=== PATIENT | female | born 2000 | race Caucasian/White ===

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

== ENCOUNTER 2023-08-11 07:56 | Emergency (ER) | payer OTHER ==
[~2023-08-11] VITALS: Ht 160 cm; Wt 54.4 kg
[~2023-08-11 07:56] MED LIST changes: +ABILIFY5 MG; +XYZAL5 MG
[2023-08-11] MEDS ORDERED: LAMOTRIGINE200 MG PO (08:11)
[2023-08-11] MEDS ORDERED: ABILIFY30 MG PO (08:12)
[2023-08-11 09:06] LABS: HEMATOCRIT 37.6 % (36.0-45.00); HEMOGLOBIN 12.2 g/dL (12.0-15.00); MEAN CELL VOLUME 86.5 fL (80.00-100.00); MEAN CORPUSCULAR HEMOGLOBIN 28.2 pg (27.00-32.0); MEAN CORPUSCULAR HGB CONC 32.6 g/dl (32.0-36.0); PLATELET COUNT 320 K/uL (150-450); RED BLOOD COUNT 4.35 M/uL (4.00-6.00); RED CELL DISTRIBUTION WIDTH 12.1 % (11.5-14.5)
[2023-08-11 09:52] LABS: BILIRUBIN TOTAL 0.33 mg/dL (0.3-1.2); CALCIUM 9.6 mg/dL (8.5-10.1); CREATININE SERUM 0.81 mg/dL (0.55-1.02); GFR 90.14; GLOBULINA 3.4 G/DL (2.4-3.5); POTASSIUM 3.88 mEq/L (3.5-5.1); TOTAL PROTEIN 7.4 gm/dL (6.4-8.2)
[2023-08-11 17:49] LABS: PH,URINE 7.5 (5.0-8.0); URINE APPEARANCE Clear; URINE BILIRRUBIN Negative (NEGATIVE); URINE BLOOD Negative; URINE COLOR Yellow; URINE GLUCOSE Negative (NEGATIVE); URINE LEUKOCYTE Negative; URINE NITRATE Positive; URINE PROTEIN Negative (NEGATIVE); URINE UROBILINOGEN 0.2 E.U./dl
[2023-08-11 17:50] LABS: URINE EPITHELIAL CELLS 19.4 uL (0.0-38.8); URINE RBC 4.8 uL (0.0-20.8); URINE WBC 67.5 uL (0.0-23.2)
[2023-08-11 17:53] LABS: URINE BACTERIA > 9821.5 uL (0.0-1933)
[2023-08-12] MEDS ORDERED: PEPCID40 MG PO (00:53)
[2023-08-12] MEDS ORDERED: CEPHALEXIN250 MG/5 M PO (00:53)
[2023-08-12] MEDS ORDERED: ONDANSETRON ODT4 MG PO (00:53)
== END 2023-08-12 01:06 ==
LOC: ER 07:56 → EMR PED 08:00 → ER 08:00 → EMR PED 08-12 01:06
PROVIDERS: Emergency Medicine Pediatric Emergency Medicine; Specialist
DX: N83.291 Other ovarian cyst, right side (principal); Z91.030 Bee allergy status; R11.2 Nausea with vomiting, unspecified; N39.0 Urinary tract infection, site not specified

== ENCOUNTER 2023-09-17 22:16 | Emergency (ER) | payer OTHER ==
[~2023-09-17] VITALS: Ht 160 cm; Wt 54.4 kg
[~2023-09-17 22:16] MED LIST changes: +ABILIFY30 MG PO; +CEPHALEXIN250 MG/5 M PO; +LAMOTRIGINE200 MG PO; +ONDANSETRON ODT4 MG PO; +PEPCID40 MG PO
== END 2023-09-17 23:22 | disposition left against medical advice (07) ==
LOC: ER 22:16
DX: R55 Syncope and collapse (principal); Z91.038 Other insect allergy status

== ENCOUNTER 2024-11-05 17:34 | Emergency (ER) | payer OTHER ==
[~2024-11-05] VITALS: Ht 157.5 cm; Wt 53.5 kg
[2024-11-05] MEDS ORDERED: LEVOCETIRIZINE D5 MG PO (17:45)
[2024-11-05] MEDS ORDERED: LAMOTRIGINE100 MG PO (17:45)
[2024-11-05] MEDS ORDERED: LITHIUM CARBON450 MG PO (17:45)
[2024-11-05] MEDS ORDERED: PROPRANOLOL HCL10 MG PO (17:45)
[2024-11-05] MEDS ORDERED: ACETAMINOPHEN 500 MG GEL..CAP PO ONE ×2 (18:27→18:30)
[2024-11-05 18:41] LABS: HEMATOCRIT 35.4 % (36.0-45.00); HEMOGLOBIN 11.5 g/dL (12.0-15.00); MEAN CELL VOLUME 90.2 fL (80.00-100.00); MEAN CORPUSCULAR HEMOGLOBIN 29.3 pg (27.00-32.0); MEAN CORPUSCULAR HGB CONC 32.5 g/dl (32.0-36.0); PLATELET COUNT 307 K/uL (150-450); RED BLOOD COUNT 3.93 M/uL (4.00-6.00); RED CELL DISTRIBUTION WIDTH 12.5 % (11.5-14.5)
[2024-11-05 18:54] LABS: PH,URINE 7.5 (5.0-8.0); URINE APPEARANCE Clear; URINE BILIRRUBIN Negative (NEGATIVE); URINE BLOOD Moderate; URINE COLOR Yellow; URINE GLUCOSE Negative (NEGATIVE); URINE KETONE Negative (NEGATIVE); URINE LEUKOCYTE Negative; URINE NITRATE Negative; URINE PROTEIN Negative (NEGATIVE); URINE UROBILINOGEN 0.2 E.U./dl
[2024-11-05 18:55] LABS: URINE BACTERIA 478.4 uL (0.0-1933); URINE EPITHELIAL CELLS 9.6 uL (0.0-38.8); URINE RBC 5.3 uL (0.0-20.8); URINE WBC 17.7 uL (0.0-23.2)
== END 2024-11-05 21:21 ==
LOC: ER 17:34
PROVIDERS: Emergency Medicine
DX: R10.2 Pelvic and perineal pain (principal); Z32.01 Encounter for pregnancy test, result positive